=== PATIENT | female | born 1955 | race Two or more races ===

== ENCOUNTER 2018-09-12 08:23 | Day surgery (SDC) | payer OTHER ==
[~2018-09-12] VITALS: Ht 160 cm; Wt 86.4 kg
[~2018-09-12 08:23] MED LIST: ACET-66 PO; AMLO-511 PO; ASPI-1182 PO; ATOR40TA28 PO; BIOT5CAP9 PO; DSS100 PO; ISOS10TA2 PO; LISI-661 PO; LOSA50TA64 PO; MULT-1297 PO; VITAD1000 PO
[2018-09-12] MEDS ORDERED: 0.9% SODIUM CHLORIDE 10 ML SYRINGE IVP PRN (09:00)
[2018-09-12] MEDS ORDERED: METOPROLOL TARTRATE 50 MG TABLET PO PRN (09:00)
[2018-09-12 09:13] LABS: ANION GAP 6 mmol/L (8-16); CALCIUM, TOTAL 9.3 mg/dL (8.8-10.5); CARBON DIOXIDE 28 mmol/L (22-29); CHLORIDE 105 mmol/L (98-107); CREATININE 0.92 mg/dL (0.60-1.30); GLOMERULAR FILTR. RATE CALC > 60 mL/min (>60); GLUCOSE,RANDOM 105 mg/dL (70-110); POTASSIUM 3.9 mmol/L (3.5-5.1); SODIUM SERUM 139 mmol/L (136-145); UREA NITROGEN, BLOOD 13 mg/dL (7-18)
[2018-09-12] MEDS ORDERED: SODIUM CHLORIDE 0.9% 100 ML ONE (09:50)
[2018-09-12] MEDS ORDERED: IOVERSOL 350 MG/ML 100 ML VIAL ONE (09:50)
== END 2018-09-12 10:45 | disposition home or self-care (01) ==
LOC: SURGERY 08:23 → EDSTATUS 10:30 → SURGERY 10:45
PROVIDERS: ATTEND Internal Medicine Cardiovascular Disease
DX: I77.1 Stricture of artery (principal); M85.88 Other specified disorders of bone density and structure, other site; E78.00 Pure hypercholesterolemia, unspecified
CPT/HCPCS: 36415; 70498; 80048; 93005; J7050; Q9967